=== PATIENT | male | born 1965 | race Hispanic/Latino ===

== ENCOUNTER 2020-04-14 08:56 | Day surgery (SDC) | payer SELFPAY ==
[~2020-04-14 08:56] MED LIST: Lactated Ringers 1,000 ML IV SCH; Lidocaine 1%/Sod Bicarbonate in NS 8.4% 1 ML Syringe IDERM PRN; Sodium Chloride 0.9% 10 ML Syringe FLUSH PRN
[2020-04-14] MEDS ORDERED: Bupivacaine 0.5%/EPINEPHrine 1:200,000 50 ML MDV ONE (09:31)
--- NOTE | 2020-04-14 09:32 | PCM.PREANE ---
Preanesthetic Assessment - Procedure Proposed Procedure: Right Inguinal Hernia Repair - Anesthesia/Transfusion/Family Hx Anesthesia History: No Prior Anesthesia Family History of Anesthesia Reaction: No - Review of Systems General: No Symptoms Pulmonary: No Symptoms Cardiovascular: No Symptoms (Greater than 4 MET activity tolerance. ) Gastrointestinal: No Symptoms Neurological: Pre-Existing Deficit (Low Back Pain with jennyfer labor. ) Other: Reports: Diabetes (Type II on oral agent for control. Blood Glucose is 208 mg/dl) - Physical Assessment NPO Status Date: 04/13/20 NPO Status Time: 19:00 Vital Signs: Last Vital Signs Temp 36.4 C 04/14/20 09:02 Pulse 82 04/14/20 09:02 Resp 16 04/14/20 09:02 BP 145/81 H 04/14/20 09:02 Pulse Ox 98 04/14/20 09:02 Weight: 75 kg ASA Class: 2 Mental Status: Alert & Oriented x3 Airway Class: Mallampati = 3 Dentition: Reports: Caries Thyro-Mental Finger Breadths: 3 Mouth Opening Finger Breadths: 3 ROM/Head Extension: Full Lungs: Clear to Auscultation, Normal Respiratory Effort Cardiovascular: Regular Rate, Regular Rhythm - Lab Values: Laboratory Last Values POC Glucose 208 mg/dL (70-105) H 04/14/20 09:12 - Allergies Allergies/Adverse Reactions: Allergies Allergy/AdvReac Type Severity Reaction Status Date / Time No Known Allergies Allergy Verified 04/11/20 08:27 - Acknowledgements Anesthesia Type Planned: General Anesthesia Pt an Appropriate Candidate for the Planned Anesthesia: Yes Alternatives and Risks of Anesthesia Discussed w Pt/Guardian: Yes Pt/Guardian Understands and Agrees with Anesthesia Plan: Yes Additional Comments: is able to understand some [place]. His son is at the bedside to assist with translation of information. Both verbalize understanding and have no further questions at this time. PreAnesthesia Questionnaire Gastrointestinal History: Reports: Other (See Below) Other Gastrointestinal History: inguinal hernia Musculoskeletal History: Reports: Back Pain, Chronic, Other (See Below) Other Musculoskeletal History: right hip pain Endocrine/Metabolic History: Reports: Diabetes, Type II - Past Surgical History GI Surgical History: - SUBSTANCE USE Smoking Status *Q: Never Smoker Recreational Drug Use History: No - HOME MEDS Home Medications: Home Meds metFORMIN [Glucophage] 500 mg PO DAILY 04/11/20 [History] - CURRENT (IN HOUSE) MEDS Current Meds: Current Medications Lactated Ringer's (Ringers, Lactated) 1,000 mls @ 125 mls/hr IV ASDIRECTED ROSE MARIE Stop: 04/14/20 23:00 Lidocaine/Sodium Bicarbonate (Buffered Lidocaine 1% In Ns 8.4%) 0.25 ml IDERM ONETIME PRN PRN Reason: Prior to IV Start Stop: 04/14/20 18:00 Sodium Chloride (Saline Flush) 10 ml FLUSH ASDIRECTED PRN PRN Reason: Keep Vein Open Stop: 04/14/20 18:00
[2020-04-14] MEDS ORDERED: Propofol 200 MG/20 ML SDV ONE ×4 (09:43→11:47)
[2020-04-14] MEDS ORDERED: Lidocaine 1% 4 ML ONE (09:45)
[2020-04-14] MEDS ORDERED: fentaNYL 250 MCG/5 ML SDV ONE (09:50)
[2020-04-14] MEDS ORDERED: Midazolam 1 MG/ML 2 ML SDV ONE (10:32)
[2020-04-14] MEDS ORDERED: Ketamine 500 mg/10 ML MDV ONE (10:40)
[2020-04-14] MEDS ORDERED: ceFAZolin 1 GM Vial ONE (10:43)
[2020-04-14] MEDS ORDERED: Ondansetron 4 MG/2 ML SDV ONE (11:00)
[2020-04-14] MEDS ORDERED: Lactated Ringers 1,000 ML ONE (11:03)
[2020-04-14] MEDS ORDERED: Ketorolac 30 MG/ML SDV ONE (12:07)
--- NOTE | 2020-04-14 12:27 | PCM.PRNOTE ---
- Free Text/Narrative Note: Date: 04/14/2020 Operation: open inguinal hernia repair with permanent mesh placement Surgeon: Alden Garza MD Operative findings:right inguinal hernia, reducible. Detailed Report: The patient was taken to the operating room and placed supine on the table. Time out was performed and general endotracheal anesthesia initiated. The abdomen and groin region were prepped and draped in sterile fashion. A total of 20 cc 0.5% marcaine with epinephrine was injected intradermally and in the subcutaneous space overlying the inguinal canal. A linear incision measuring 7 cm in length was made along the projection of the inguinal ligament, between the anterior superior iliac spine and the pubic tubercle. Dissection was carried down to the external oblique aponeurosis. An additional 10 cc of local anesthetic was injected just deep to the fibers, into the inguinal canal. A stab incision with the 15 blade scalpel through the aponeurosis, and Metzenbaum scissors were passed deep to the fibers and used to bluntly separate the underlying spermatic cord. Scissors were then used to sharply divide the roof of the inguinal canal, and clamps were placed on the fascia. Self-retaining retractors were placed to aid with optimal exposure, with the spermatic cord in view. The ilioinguinal nerve was identified and preserved. A right angle clamp was passed deep to the cord at the level of the pubic tubercle, and a inch jen drain was placed, encircling the cord structures and hernia sac. Blunt dissection was used to split the cremasteric fibers anchoring the cord to the floor of the canal. The hernia sac was then carefully from the cord, working distal to proximal. Silk sutures were placed at the mid portion of the exposed sac, and the sac was entered sharply with scissors in order to confirm identification of the sac and ensure all contents were reduced. The sac was then suture ligated and transected. The distal sac was from adherent tissue and almost completely removed with scissors. Next, a piece of Progrip permanent lightweight mesh was cut to size and placed to reconstruct the floor of the inguinal canal. An anchoring prolene stitch was placed at the inferomedial aspect at the insertion of the rectus muscle to the pubic bone. Good medial and inferior overlap, 2 cm, at the tubercle was ensured. The lateral aspect of the mesh was then sewn to the shelving edge of the inguinal ligament with running prolene suture. The mesh was cut to permit passage of the cord, and the internal ring was recreated by stitching the mesh back together securely around the cord, with enough space to permit passage of the tip of the little finger. With the mesh laying nice and flat, the leaflets of the external oblique aponeurosis were closed using interrupted vicryl suture. Bubba fascia was closed in identical fashion, and the skin was closed with an absorbable running subcuticular stitch and dressed with dermabond.
--- NOTE | 2020-04-14 12:33 | PCM48HPAN ---
Post Anesthesia Note - EVALUATION WITHIN 48HRS OF ANESTHETIC Vital Signs in Normal Range: Yes Patient Participated in Evaluation: Yes Respiratory Function Stable: Yes Airway Patent: Yes Cardiovascular Function Stable: Yes Hydration Status Stable: Yes Pain Control Satisfactory: Yes Nausea and Vomiting Control Satisfactory: Yes Mental Status Recovered: Yes Vital Signs: Last Vital Signs Temp 97.7 F 04/14/20 12:22 Pulse 72 04/14/20 12:30 Resp 12 04/14/20 12:30 BP 104/62 04/14/20 12:30 Pulse Ox 96 04/14/20 12:30
== END 2020-04-14 13:50 | disposition home or self-care (01) ==
LOC: JD.SDS 08:56
PROVIDERS: ATTEND Surgery
PROC: 0YU50JZ Supplement Right Inguinal Region with Synthetic Substitute, Open Approach (ICD-10-PCS; principal; 2020-04-14)
DX: K40.90 Unilateral inguinal hernia, without obstruction or gangrene, not specified as recurrent (principal); E11.9 Type 2 diabetes mellitus without complications; E78.00 Pure hypercholesterolemia, unspecified; Z79.84 Long term (current) use of oral hypoglycemic drugs
CPT/HCPCS: 36415; 49505; 80048; 82962; 93005; C1781; J0690; J1885; J2001; J2250; J2405; J2704; J3010; J3490; J7120; 00830